=== PATIENT | male | born 1950 | race Caucasian/White ===

== ENCOUNTER 2017-01-25 11:39 | Emergency (ER) | payer MEDICARE, OTHER ==
--- NOTE | 2017-01-25 11:56 | EDM.PDOC ---
ED HPI GENERAL MEDICAL PROBLEM - General Chief Complaint: Lower Extremity Injury/Pain Stated Complaint: TOE ON LT FOOT HURTS Time Seen by Provider: 01/25/17 11:48 - History of Present Illness INITIAL COMMENTS - FREE TEXT/NARRATIVE: HISTORY AND PHYSICAL: History of present illness: Patient 66-year-old white male history of diabetes presents with a concern of evaluation for having lost the toenail this is the third digit of his right foot that hetook his sock off he's in no tenderness no significant erythema fever chills nausea vomiting or other complaints Review of systems: As per history of present illness and below otherwise all systems reviewed and negative. Past medical history: As per history of present illness and as reviewed below otherwise noncontributory. Surgical history: As per history of present illness and as reviewed below otherwise noncontributory. Social history: No reported history of drug or alcohol abuse. Family history: As per history of present illness and as reviewed below otherwise noncontributory. Physical exam: HEENT: Atraumatic, normocephalic, pupils reactive, negative for conjunctival pallor or scleral icterus, mucous membranes moist, throat clear, neck supple, nontender, trachea midline. Lungs: Clear to auscultation, breath sounds equal bilaterally, chest nontender. Heart: S1S2, regular, negative for clicks, rubs, or JVD. Abdomen: Soft, nondistended, nontender. Negative for masses or hepatosplenomegaly. Negative for costovertebral tenderness. Pelvis: Stable nontender. Genitourinary: Deferred. Rectal: Deferred. Extremities: Patient has loss of the toenail of the third digit of his right foot noted seamless neurovascular exam are at baseline there is minimal erythema no fluctuance no indurationand warmth Neuro: Awake, alert, oriented. Cranial nerves II through XII unremarkable. Cerebellum unremarkable. Motor and sensory unremarkable throughout. Exam nonfocal. Diagnostics: X-ray right foot Therapeutics: None Impression: #1 diabetes #2 nail avulsion third digit right foot Definitive disposition and diagnosis as appropriate pending reevaluation and review of above. Review of Systems - Review of Systems Review Of Systems: ROS reveals no pertinent complaints other than HPI. ED EXAM, GENERAL - Physical Exam Exam: See Below (See dictation) Course - Orders/Labs/Meds Orders: Active Orders 24 hr Category Date Time Status Foot 2V Rt [CR] Stat Exams 01/25/17 11:53 Ordered Departure - Departure Time of Disposition: 11:55 Disposition: Home, Self-Care 01 Condition: Good Clinical Impression: Nail avulsion, Diabetes - Discharge Information Referrals: PCP,None [Primary Care Provider] - Additional Instructions: The following information is given to patients seen in the emergency department who are being discharged to home. This information is to outline your options for follow-up care. We provide all patients seen in our emergency department with a follow-up referral. The need for follow-up, as well as the timing and circumstances, are variable depending upon the specifics of your emergency department visit. If you don't have a primary care physician on staff, we will provide you with a referral. We always advise you to contact your personal physician following an emergency department visit to inform them of the circumstance of the visit and for follow-up with them and/or the need for any referrals to a consulting specialist. The emergency department will also refer you to a specialist when appropriate. This referral assures that you have the opportunity for followup care with a specialist. All of these measure are taken in an effort to provide you with optimal care, which includes your followup. Under all circumstances we always encourage you to contact your private physician who remains a resource for coordinating your care. When calling for followup care, please make the office aware that this follow-up is from your recent emergency room visit. If for any reason you are refused follow-up, please contact the [facility] emergency department at and asked to speak to the emergency department charge nurse. Podiatry referral Keflex as prescribed nail care as discussed return as needed as discussed - My Orders Last 24 Hours: My Active Orders 01/25/17 11:53 Foot 2V Rt [CR] Stat - Assessment/Plan Last 24 Hours: My Active Orders 01/25/17 11:53 Foot 2V Rt [CR] Stat
[2017-01-25] MEDS ORDERED: Bacitracin Oint 1 GM U/D Packet TOP ONE (13:26)
[2017-01-25 14:19] VITALS: BP 155/68
--- NOTE | 2017-01-27 11:08 | CR ---
EXAM DATE: 01/25/17 PATIENT'S AGE: 66 Patient: BRANDIN OCASIO Facility: [place], [place] Site . Site : [id number] Study: XRay Extremity foot [id number]/26/2017 12:18:34 PM Ordering Physician: Doctor Welch Final Report: Third digit pain loss of toenail diabetic. Technique: Three views of the right foot. Findings: There is normal alignment. There is no acute fracture. Calcaneal spurs. No acute bony abnormality. No abnormal periosteal reaction. Dictated by Antonella Mueller MD @ Jan 25 2017 12:59PM (Electronic Signature) Report Signed by Proxy. DAMEON
== END 2017-01-25 14:19 | disposition home or self-care (01) ==
LOC: MW.ED 11:39
DX: S91.204A Unspecified open wound of right lesser toe(s) with damage to nail, initial encounter (principal); E11.9 Type 2 diabetes mellitus without complications; X58.XXXA Exposure to other specified factors, initial encounter
CPT/HCPCS: 73630-26-RT; 73630-RT; 99282; 99283